=== PATIENT | male | born 1950 | race Caucasian/White ===

== ENCOUNTER → 2017-08-24 | Day surgery (SDC) | payer OTHER ==
[~2017-08-24] VITALS: Ht 185.4 cm; Wt 81.6 kg
--- NOTE | 2017-08-24 16:18 | Operative Report ---
Operative/Inv Procedure Report Surgery Date: 08/24/17 Name of Procedure: Left proximal hamstring repair Pre-Operative Diagnosis: Left proximal hamstring avulsion Post-Operative Diagnosis: Left proximal hamstring avulsion Estimated Blood Loss: 50ml to 100ml Surgeon/Bog Worker: Ga ESPINOZA,MIHAI Borges Anesthesia: general endotracheal tube Complications: None Condition: Stable to PACU Operative Indication: This is a 67-year-old male who injured his left hip waterskiing. MRI showed a complete hamstring avulsion. He is very active. Risks and benefits of the procedure were discussed with the patient at length. Risks include but are not limited to nerve damage, muscle damage, infection, blood loss, blood clots, pulmonary embolus, and even . The patient agreed to the above risks and elected to proceed with surgery. Operative/Procedure Note Note: The patient was placed supine on the stretcher. Anesthesia was then induced. The patient was then placed prone on a well padded operating room table with chest bumps. The lower extremity was prepped and draped in normal sterile fashion. A timeout was performed before the incision. The site marking was visualized before incision. An incision was then made in the gluteal fold overlying the ischial tuberosity. Skin flaps were retracted. Care was taken to protect any vital structures. The gluteus vanessa fascia was identified and incised. A raphae of gluteus vanessa muscle was identified and split in line with its fibers. This exposed the ischial tuberosity bursa. The bursa was incised. The hematoma was evacuated. The wound was explored and the hamstring tendon was freed of any adhesions. It was then delivered with Allis clamps and whipstitched. Excisional tuberosity was exposed. Care was taken to protect the sciatic nerve. A Luciano was used to debride the issue tuberosity of any soft tissue. A curet was also used to debride the bone. The wound was copiously irrigated. Four 2.8 millimeter Qfix anchors were then placed in a box fashion. The sutures were then passed in a horizontal mattress fashion. There were then tied successively. This served to reduce the hamstring tendon quite well. The sutures were then tied again connecting the anchors. The excess sutures cut. The repair was noted to be quite stable. The wound was again copiously irrigated. The fascia was closed with 0 Vicryl suture. The skin was closed with 2-0 Vicryl suture and a running subcuticular 4 -0 Monocryl. Dermabond was applied. The wound was then anesthetized with 0.25% Marcaine. A dry sterile dressing was placed. The patient was placed in a knee brace flexed at 40 and transferred to PACU in stable condition.
== END ==
LOC: STS 02:15
DX: S76.392A Other specified injury of muscle, fascia and tendon of the posterior muscle group at thigh level, left thigh, initial encounter (principal); Y93.17 Activity, water skiing and wake boarding; Z87.891 Personal history of nicotine dependence
CPT/HCPCS: J0131; J0690; J1100; J2250; J2405